=== PATIENT | female | born 1965 | race Caucasian/White ===

== ENCOUNTER → 2016-09-10 | Outpatient (CLI) | payer OTHER ==
[~2016-09-10] MED LIST: AMBIEN10 MG PO; DEXILANT60 MG PO; DOCUSATE SODIU100 MG PO; FLAGYL500 MG PO; MOTRIN600 MG PO; MULTIPLE VITAM1 EACH PO; NOHOMEMEDS; TORADOL PO; TRAMADOL HCL50 MG PO; TUMS DUAL ACTI1 EACH PO; TYLENOL EXTRA500 MG PO
== END | disposition home or self-care (01) ==
LOC: CDC 14:19
DX: Z01.810 Encounter for preprocedural cardiovascular examination (principal); S86.111A Strain of other muscle(s) and tendon(s) of posterior muscle group at lower leg level, right leg, initial encounter; M21.6X1 Other acquired deformities of right foot; M21.41 Flat foot [pes planus] (acquired), right foot
CPT/HCPCS: 93000